=== PATIENT | male | born 2005 | race African-American/Black ===

== ENCOUNTER 2023-05-02 01:42 | Emergency (ER) | payer MEDICAID ==
[~2023-05-02] VITALS: Ht 165.1 cm; Wt 55.0 kg
[2023-05-02 01:58] VITALS: BP 128/76; O2SAT 99
[2023-05-02] MEDS ORDERED: ACETAMINOPHEN 325MG TABLET PO STA (02:24)
[2023-05-02] MEDS ORDERED: BACITRACIN ZINC OINT UDPKT TOP ONE (02:30)
[2023-05-02] MEDS ORDERED: AMOXICILLIN/POTASSIUM CLAVULANATE 875/125MG TAB PO ONE (05:00)
[2023-05-02] MEDS ORDERED: AMOX1TAB16 MT (05:00)
[2023-05-02] MEDS ORDERED: NAPR-1164 MT (05:00)
[2023-05-02 05:35] VITALS: PULSE 98; RESP 20; TEMP 98.2
== END 2023-05-02 05:37 | disposition home or self-care (01) ==
LOC: EDSEX 01:42 → ER 01:42
DX: S02.2XXA Fracture of nasal bones, initial encounter for closed fracture (principal); S06.9XAA Unspecified intracranial injury with loss of consciousness status unknown, initial encounter; Y04.0XXA Assault by unarmed brawl or fight, initial encounter; Y93.89 Activity, other specified; Y92.89 Other specified places as the place of occurrence of the external cause; Y99.8 Other external cause status
CPT/HCPCS: 73130; 70450; 70486; 99284; Z7610 ×3

== ENCOUNTER 2023-11-24 05:32 | Emergency (ER) | payer MEDICAID ==
[~2023-11-24] VITALS: Ht 172.7 cm; Wt 55.0 kg
[~2023-11-24 05:32] MED LIST: AMOX1TAB16 MT; NAPR-1164 MT
[2023-11-24 05:43] VITALS: BP 100/49; PULSE 70; RESP 16; TEMP 98; O2SAT 99
== END 2023-11-24 09:13 | disposition left against medical advice (07) ==
LOC: ER 05:32
DX: R51.9 Headache, unspecified (principal); Z53.21 Procedure and treatment not carried out due to patient leaving prior to being seen by health care provider; Y04.0XXA Assault by unarmed brawl or fight, initial encounter; Y93.89 Activity, other specified; Y92.89 Other specified places as the place of occurrence of the external cause; Y99.8 Other external cause status